=== PATIENT | male | born 1990 | race Caucasian/White ===

== ENCOUNTER → 2018-04-17 14:13 | Outpatient (CLI) | payer OTHER, SELFPAY ==
--- NOTE | 2018-04-17 | DI.RAD.S_ITS ---
PROCEDURE: XR FEMUR LT MIN 2V INDICATIONS: LEFT FEMUR PAIN TECHNIQUE: 4 views of the femur were acquired. COMPARISON: None. FINDINGS: Bones: No fractures or dislocations. No suspicious bony lesions. Soft tissues: No suspicious soft tissue calcifications or masses. IMPRESSION: No fracture Dictated by: Joel Sandoval M.D. on 04/17/2018 at 15:34 Approved by: Joel Sandoval M.D. on 04/17/2018 at 15:36
== END ==
PROVIDERS: Family Provider Family Medicine; PCP Family Medicine; Visit Provider Family Medicine
DX: M79.652 Pain in left thigh (principal)
CPT/HCPCS: 73552

== ENCOUNTER → 2019-09-22 12:28 | Outpatient (ROUT) | payer OTHER, SELFPAY ==
[2019-09-22 12:50] LABS: Influenza A and B by PCR Rapid Negative (Negative)
== END ==
PROVIDERS: Family Provider Family Medicine; PCP Family Medicine; Visit Provider Nurse Practitioner Family
DX: R68.83 Chills (without fever) (principal); R52 Pain, unspecified; R09.81 Nasal congestion
CPT/HCPCS: 87502

== ENCOUNTER 2021-03-03 20:13 | Emergency (ER) | payer OTHER, SELFPAY ==
[2021-03-03 20:20] VITALS: BP 145/73; PULSE 83; RESP 14; TEMP 36.8; O2SAT 96; BMI 26.4
--- NOTE | 2021-03-03 23:01 | ED_ITS ---
HPI - Skin/Abscess/Foreign Bdy General Chief complaint: Skin/Abscess/Foreign Body Stated complaint: BAKERS CYST RIGHT KNEE PAIN SWELLING Time Seen by Provider: 03/03/21 23:01 Source: patient Mode of arrival: Ambulatory Limitations: no limitations History of Present Illness HPI narrative: This is a 30-year-old male comes with concern for make her cyst behind his right knee. Patient noticed had a small lump along the ligament on the back of his knee on the right leg. Patient states it became increasing swollen, it became red. He attempted to [place] it. It did not really drain but the redness had been increasing and is now starting to improve. It is tender. He describes some tingling in the surrounding area. He felt like he might had a fever earlier today and felt tingly all over but denies any other symptoms. He is otherwise healthy. Denies any other surgeries. No allergies to medications. Patient does not have any other concerns currently. Related Data Home Medications Medication Instructions Recorded Confirmed multivitamin [Multiple Vitamins] 1 tab PO QDAY #0 10/01/17 omega 0-xbh-gyc-fish oil [Fish Oil] 1,000 mg PO #0 10/01/17 Previous Rx's Medication Instructions Recorded methylprednisolone 21 tab PO SEE INSTRUCTIONS #1 pac 10/01/17 valacyclovir [Valtrex] 1,000 mg PO TID #21 tab 10/01/17 cephalexin 500 mg PO QID #20 cap 03/03/21 Allergies Allergy/AdvReac Type Severity Reaction Status Date / Time fexofenadine [From Cheryl] Allergy Verified 03/03/21 20:24 Review of Systems Review of Systems ROS Unobtainable: All systems reviewed & are unremarkable except as noted in HPI and below Patient History Social History Smoking Status: Unknown if ever smoked Smoking Status: Unknown if ever smoked alcohol intake frequency: holidays/special occasions only Substance Use Type: marijuana Exam Narrative Exam Narrative: GENERAL: Alert and oriented x three, well-nourished male in mild distress. HEENT: Head normocephalic, atraumatic, EOMI, pupils reactive, face symmetric, moist mucous membranes NECK: Supple, full range of motion CARDIOVASCULAR: Regular rate and rhythm without murmurs, rubs or gallops. RESPIRATORY: Breath sounds equal bilaterally, no wheezes rales or rhonchi. ABDOMEN: Soft, nontender. Normoactive bowel sounds all 4 quadrants. No guarding or rebound, rigidity, no mass EXTREMITIES: Normal range of motion, no clubbing or edema. Neurovascularly intact. No bony tenderness. On the lateral ligament of the right knee there is some swelling and a small blister with some surrounding erythema. The area is indurated but there is no fluctuance. I am unable to express any fluid. Patient is full range of motion. Neurovascularly intact he does not have any swelling of the calf for lower extremity otherwise. NEUROLOGICAL: Cranial nerves II through XII grossly intact. Moving all extremities SKIN: Warm, dry, no petechiae, no rashes or lesions. Initial Vital Signs Initial Vital Signs: Vital Signs Temperature 98.2 F 03/03/21 20:20 Pulse Rate 83 03/03/21 20:20 Respiratory Rate 14 03/03/21 20:20 Blood Pressure 145/73 H 03/03/21 20:20 Pulse Oximetry 96 03/03/21 20:20 Course Vital Signs Vital signs: Vital Signs - 8 hr 03/03/21 23:48 Pulse Rate 66 Respiratory Rate 17 Blood Pressure 121/58 L Pulse Oximetry 97 Discharge Plan Departure Patient Disposition: Home Clinical Impression: Cellulitis Instructions: DI for Cellulitis -- Adult Activity Restrictions/Additional Instructions: Follow up with your physician. Start antibiotics if your leg does not continue to improve. Wound Care: Keep wound(s) clean and dry. Wash daily with soap and water only. Do not use over the counter products (alcohol or peroxide)on the wounds unless instructed by a physician. If wound condition worsens (increased/expanding redness, developing fluid blisters, or worsening pain), either contact your doctor for an urgent re- assessment , or return to the Emergency Department. Return to the Emergency Department for any new or worsening symptoms. Return if fever greater than 100.4 Fahrenheit, increased swelling, increasing pain or worsening symptoms such as increased discharge or spreading redness. Use warm compresses 3 times daily for 20 minutes to the affected area. Prescriptions: New cephalexin 500 mg capsule 500 mg PO QID Qty: 20 RF: 0 No Action multivitamin [Multiple Vitamins] 1 EACH tablet 1 tab PO QDAY Qty: 0 RF: 0 omega 4-jrj-jwu-fish oil [Fish Oil] 1,000 MG capsule 1,000 mg PO Qty: 0 RF: 0 valacyclovir [Valtrex] 1,000 MG tablet 1,000 mg PO TID Qty: 21 RF: 0 methylprednisolone 4 MG tablets,dose pack 21 tab PO SEE INSTRUCTIONS Qty: 1 RF: 0
[2021-03-03 23:48] VITALS: BP 121/58; PULSE 66; RESP 17; O2SAT 97
== END 2021-03-03 23:49 | disposition home or self-care (01) ==
PROVIDERS: Emergency Provider Emergency Medicine
DX: L03.115 Cellulitis of right lower limb (principal)
CPT/HCPCS: 99281

== ENCOUNTER → 2021-12-07 11:15 | Outpatient (CLI) | payer SELFPAY ==
[2021-12-07 12:16] LABS: Influenza A - CEPHEID Flu A NEGATIVE (NEGATIVE); Influenza B - CEPHEID Flu B NEGATIVE (NEGATIVE)
[2021-12-07 13:38] LABS: COVID-19 CEPHEID PCR (VTM/NP) POSITIVE (Negative)
== END ==
PROVIDERS: Visit Provider Nurse Practitioner Family
DX: U07.1 COVID-19 (principal); Z20.822 Contact with and (suspected) exposure to COVID-19; R09.81 Nasal congestion; R52 Pain, unspecified
CPT/HCPCS: 87502; U0003

== ENCOUNTER → 2024-01-08 16:47 | Outpatient (CLI) | payer OTHER, SELFPAY ==
--- NOTE | 2024-01-08 | DI.RAD.S_ITS ---
PROCEDURE: XR CHEST 2V INDICATIONS: COUGH TECHNIQUE: 2 views of the chest were acquired. COMPARISON: None. FINDINGS: Surgical changes and devices: None. Lungs and pleura: Lungs are clear. No pleural effusions or pneumothorax. Mediastinum: Mediastinal contours are normal. Heart size is normal. Bones and chest wall: No suspicious bony abnormalities. Soft tissues appear unremarkable. IMPRESSION: No acute cardiopulmonary abnormality is seen. Approved by: Jesus Bennett M.D. on 01/09/2024 at 10:19
== END ==
LOC: DI 16:49
PROVIDERS: Referring Provider Family Medicine; Visit Provider Family Medicine
DX: R05.3 Chronic cough (principal)
CPT/HCPCS: 71046

== ENCOUNTER → 2024-04-13 09:37 | Outpatient (CLI) | payer OTHER, SELFPAY | PROVIDERS: PCP Family Medicine; Visit Provider Nurse Practitioner Family | DX: J02.9 Acute pharyngitis, unspecified (principal) | CPT/HCPCS: 87070 ==

== ENCOUNTER → 2025-03-23 08:45 | Outpatient (CLI) | payer OTHER, SELFPAY ==
[2025-03-25 13:38] LABS: Arsenic 4 ug/L (0-9); Cadmium, Blood <0.5 ug/L (0.0-1.2); Lead, Blood < 1.0 ug/dL (0.0-3.4); Mercury, Blood 3.9 ug/L (0.0-14.9)
[2025-03-25 14:09] LABS: Deamidated Gliadin Ab IgA 13 units (0-19); Deamidated Gliadin Ab IgG 2 units (0-19); Immunoglobulin A,Qn 393 mg/dL (90-386); t-Transglutaminase IgA <2 U/mL (0-3)
[2025-04-09 07:09] LABS: Testosterone Free 10.93 ng/dL (5.00-21.00); Testosterone Total 287.6 ng/dL (264.0-916.0)
== END ==
PROVIDERS: PCP Family Medicine; Referring Provider Family Medicine; Visit Provider Family Medicine
DX: Z00.00 Encounter for general adult medical examination without abnormal findings (principal); Z13.29 Encounter for screening for other suspected endocrine disorder; Z13.21 Encounter for screening for nutritional disorder; Z13.228 Encounter for screening for other metabolic disorders; Z13.0 Encounter for screening for diseases of the blood and blood-forming organs and certain disorders involving the immune mechanism; E29.1 Testicular hypofunction; K30 Functional dyspepsia
CPT/HCPCS: 36415; 82175; 82300; 82784; 83516; 83655; 83825; 84402; 84403